=== PATIENT | female | born 1950 | race Caucasian/White ===

== ENCOUNTER 2022-06-05 08:51 | Day surgery (SDC) | payer MEDICARE ==
[~2022-06-05] VITALS: Ht 157.5 cm; Wt 52.7 kg
[2022-06-05] MEDS ORDERED: LIALDA 1.2 GM1.2 GM PO (09:46)
[2022-06-05 10:03] VITALS: BP 142/79; PULSE 81; TEMP 97.5
[2022-06-05 10:45] VITALS: BP 161/79; PULSE 78; TEMP 97.4
[2022-06-05 11:00] VITALS: BP 174/91; PULSE 78
--- NOTE | 2022-06-05 11:12 | NUR ---
1045 - PT arrives and was settled by Dennise GARIBAY; verbal report then obtained. DR is speaking w/ PT. 1100 - Vitals obtained. Chicken broth served. PT denies nausea/pain. Call blood is within reach if needed; non-slip socks remain on.
[2022-06-05 11:15] VITALS: BP 163/83; PULSE 74
--- NOTE | 2022-06-05 11:21 | NUR ---
1115 - Vitals obtained. PT is on the phone; call blodo remains within reach.
[2022-06-05 11:30] VITALS: BP 142/73; PULSE 68
--- NOTE | 2022-06-05 11:35 | NUR ---
1130 - VSS. IV discontinued; catheter tip intact and pressure bandage applied. NO redness or swelling noted. PT refused RN assistance changing into personal clothes; call blood remains within reach and visitor remains present.
--- NOTE | 2022-06-05 11:59 | NUR ---
1145 - DC instructions and educational material reviewed w/ PT, who verbalized understanding and signed the related paperwork. Questions answered to PT satisfaction. PT then dismissed from endo via wheelchair to PT entrence by Inga GARIBAY. Dennise GARIBAY escorted her via wheelchair to PT car; he then pulled up to the PT entrence. The PT was transferred into his care at this time, who is driving private car.
== END 2022-06-05 12:00 | disposition home or self-care (01) ==
LOC: SDCO 08:51
DX: D12.0 Benign neoplasm of cecum (principal); Z98.0 Intestinal bypass and anastomosis status; K62.4 Stenosis of anus and rectum; Z87.891 Personal history of nicotine dependence
CPT/HCPCS: J2704; J7030